=== PATIENT | female | born 1940 ===

== ENCOUNTER 2024-05-20 13:31 | Outpatient (CLI) | payer MEDICARE, BC, SELFPAY ==
[2024-05-20] VITALS (11 sets, daily range): BP systolic 137; BP diastolic 86; PULSE 66; RESP 18; TEMP 36.6; O2SAT 92–98
--- NOTE | 2024-05-20 13:41 | PDOC.PAIN ---
Date of service: 05/20/24 Time of Service: 15:12 Pain Managment Procedure Note Procedure Note Procedure Note: Lumbar Transforaminal Epidural Steroid Injection ? Location: LEFT L4 and L5 ? Pre-procedure Diagnosis: M54.17-Radiculopathy, lumbosacral region M54.16 Radiculopathy, lumbar region ? Post-procedure Diagnosis:? The same as above ? Sedation:? none ? Estimated blood loss:? less than 2 cc ? Surgeon:? Mick Mills MD COMMENT: Patient has severe stenosis at L4 4 5 and L3-4 as well as 5 1 L5-S1 with status post laminectomy years ago. Plan was made for a caudal approach but could not access the sacral hiatus after several attempts so procedure was converted to transforaminal steroid injection. ? Procedure Detail:?? The procedure and potential risks were explained to the patient and informed written consent was obtained. The patient was escorted to the procedure room and placed in the prone position. Pillows were utilized for proper positioning and comfort. Time out was performed in the procedure room with nursing staff confirming the patient's identity, procedure to be performed, allergies, and any blood thinning or anti-platelet medications. The patient's lower back was prepped with ChloraPrep and draped in a sterile fashion. Sterile gloves were used, a face mask was worn, and new single dose vials of all medications were used with the top being swabbed with alcohol and given time to dry prior to withdrawal of medication. A LEFT-sided oblique fluoroscopic view was obtained, with visualization of L4-5. Lidocaine 1% was used to anesthetize the skin. The tip of a 22-gauge, Quincke needle was advanced toward the 6 o'clock position of the superior pedicle at the target level.? It was advanced just under the pedicle to the neural foramen L4-5. Correct needle placement was confirmed through review of the fluoroscopy. Next, following negative aspiration, 1cc's of Omnipaque 240 contrast was injected under live fluoroscopy which showed good flow throughout the epidural space and no evidence of vascular flow or flow into adjacent compartments. Next, following negative aspiration, 40mg of DEPO-MEDROL and 0.5ml of 0.5% bupivacaine was injected. The needle was gently removed.? The procedure was also performed in the same fashion at L5-S1.? The patient tolerated the procedure well.? Permanent images saved and recorded. Plan:? Follow up prn COMMENT: Would consider repeating as needed if it is helpful. 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 Also considering reevaluation by surgery if spinal stenosis symptoms worsen.
--- NOTE | 2024-05-20 15:14 | DI.RAD_ITS ---
Exam(s) XR PAIN CLINIC LUMBAR SP 2V EXAM: XR PAIN CLINIC LUMBAR SP 2V CLINICAL HISTORY: Dx: Lumbar Radiculopathy. TECHNIQUE: Fluoroscopy was provided for the referring physician for guidance with performing pain cl inic injection procedure. COMPARISON: No exams were available for comparison FINDINGS: Please see procedure note for details. Fluoro time: 72.2 seconds RADIATION DOSE DELIVERED: Ka,r=31.0 mGy
[2024-05-20] MEDS: Bupivacaine 0.5% Pres-Free 10 ML VIAL IJ (15:23)
[2024-05-20] MEDS: methylPREDNISolone ACETATE 40 MG/ML VIAL IJ (15:24)
[2024-05-20] MEDS: Omnipaque 240 MG/ML 50 ML BTL IJ (15:24)
[2024-05-20] MEDS: Lidocaine 2% Pres-Free 5 ML VIAL IJ (15:24)
[2024-05-20] MEDS: Nerve Block Tray 1 EACH MC (15:25)
== END 2024-05-20 13:32 | disposition home or self-care (01) ==
LOC: PC 13:32
PROVIDERS: PCP Family Medicine; Visit Provider Anesthesiology Pain Medicine
DX: M54.50 Low back pain, unspecified (principal); M54.17 Radiculopathy, lumbosacral region; M54.16 Radiculopathy, lumbar region
CPT/HCPCS: 00123; 64483; 64484; 72100; J0665; J1010; Q9967